=== PATIENT | male | born 1990 | race African-American/Black ===

== ENCOUNTER 2017-03-12 02:01 | Emergency (ER) | payer SELFPAY ==
[~2017-03-12] VITALS: Ht 180.3 cm; Wt 70.0 kg
[~2017-03-12 02:01] MED LIST: CEFU1TAB43 PO; PROM6.257 PO; VENTAER INH; Z.0.NO CURRENT MEDS
[2017-03-12 02:03] VITALS: BP 117/74; PULSE 77; RESP 16; TEMP 97.5; O2SAT 99
[2017-03-12] MEDS ORDERED: BACT800T5 PO ×2 (02:28→02:35)
[2017-03-12] MEDS ORDERED: CEPH-460 PO (02:28)
[2017-03-12] MEDS ORDERED: SULFAMETHOXAZOLE-TRIMETHOPRIM DS 800-160 MG TAB PO ONE (02:30)
[2017-03-12] MEDS ORDERED: CEPHALEXIN MONOHYDRATE 500 MG CAP PO ONE (02:30)
--- NOTE | 2017-03-12 02:34 | PD ---
HPI Chief Complaint: Bite or Sting Time Seen by Provider: 02:31 Travel History International Travel<30 days: No Contact w/Intl Traveler<30days: No Traveled to known affect area: No History of Present Illness HPI 26-year-old black male presents to emergency department with a tender red area on his right buttocks for the past 4 days. He states that he has had a "[place]'s " in the past. He denies any fever chills. No drainage. Pain is mild. No nausea vomiting. No abdominal pain. No alleviating factors. No exacerbating factors. PFSH Past Medical History Narrative Medical Asthma, abscess Asthma: Yes Diminished Hearing: No Immunizations Current: Yes Tetanus Vaccination: < 5 Years Past Surgical History Surgical History: No Previous Surgery Social History Alcohol Use: No Tobacco Use: Yes (1/2ppd) Substance Use: No Allergies-Medications (Allergen,Severity, Reaction): Coded Allergies: Ampicillin (Verified Allergy, Severe, HIVES, 03/12/17) Reported Meds & Prescriptions Reported Meds & Active Scripts Active Bactrim DS (Sulfamethoxazole-Trimethoprim) 800-160 Mg Tab 1 Tab PO BID Keflex (Cephalexin) 500 Mg Cap 500 Mg PO Q6H Review of Systems Except as stated in HPI: all other systems reviewed are Neg Physical Exam Narrative GENERAL: This is a well-nourished, well-developed patient, in no apparent distress. SKIN: There is a 3 x 3 cm indurated erythematous area to the right buttocks. There is a small central nidus with no drainage., ecchymoses or lesions. Warm and dry. HEAD: Atraumatic. Normocephalic. EYES: PERRL, EOMI, no discharge or injection. No scleral icterus. EARS: Clear NOSE: Nasal turbinates appear normal. THROAT: Mucosa pink and moist. Airway patent. NECK: Trachea midline. supple, moves head freely. LUNGS: Clear to auscultation. CV: Regular in rhythm. ABDOMEN: Soft nontender. EXT: No clubbing cyanosis or edema. Data Data Last Documented VS Vital Signs Date Time Temp Pulse Resp B/P Pulse Ox O2 Delivery O2 Flow Rate FiO2 03/12/17 02:03 97.5 77 16 117/74 99 Orders Sulfamet-Trimeth Ds 800-160 Mg (Bactrim (03/12/17 02:30) Cephalexin (Keflex) (03/12/17 02:30) MDM Medical Decision Making Medical Screen Exam Complete: Yes Emergency Medical Condition: Yes Medical Record Reviewed: Yes Differential Diagnosis MDM: High Differential diagnoses: Abscess, folliculitis, cellulitis, lymphangitis, abrasion, contact dermatitis Narrative Course There is an early abscess developing on the right buttocks. No indication for incision and drainage currently. Antibiotics. Keflex 500 and Bactrim DS by mouth Diagnosis Primary Impression: Abscess of right buttock Patient Instructions: General Instructions Additional Instructions: Rest. Elevation. keep clean and dry. remove the packing in two days. Daily wound care with soap, water and Neosporin. Three Advil every 6 hours. Bactrim DS and Keflex Follow-up with a primary care doctor in one week. Return to the ER for any problems. Med/Other Pt SpecificInfo: Prescription(s) given, Wound Care Scripts Sulfamethoxazole-Trimethoprim (Bactrim DS)800-160 Mg Tab1 Tab PO BID #20 TAB Prov:Kalli Spaulding MD 03/12/17 Cephalexin (Keflex)500 Mg Buv529 Mg PO Q6H #40 CAP Prov:Kalli Spaulding MD 03/12/17 Disposition: 01 DISCHARGE HOME Condition: Stable Terrance Mott March 12, 2017 02:34
== END 2017-03-12 03:54 | disposition home or self-care (01) ==
LOC: NEPD 02:01
DX: L02.31 Cutaneous abscess of buttock (principal); J45.909 Unspecified asthma, uncomplicated; F17.210 Nicotine dependence, cigarettes, uncomplicated
CPT/HCPCS: 99283